=== PATIENT | female | born 1950 | race Caucasian/White ===

== ENCOUNTER → 2019-10-27 10:16 | Outpatient (CLI) | payer OTHER, MEDICARE, SELFPAY ==
--- NOTE | ~2019-10-27 | MR_ITS ---
EXAMINATION: MR knee RT wo con DATE: 10/27/2019 11:16 INDICATION: Tear of medial meniscus of right knee. Right knee pain. TECHNIQUE: Magnetic resonance imaging (MRI) of the right knee was performed without intravenous contr ast. Sequences included axial PD-weighted FS FSE, coronal PD-weighted FSE and PD-weighted FS FSE, sag ittal PD-weighted FSE, and sagittal T2-weighted FS FSE. COMPARISON: None. FINDINGS: Medial compartment: There is a vertical tear of posterior root of medial meniscus. There is deep partial thickness cartil age loss of tibial condyle involving the central articular surface with moderate subchondral edema-li ke marrow signal intensity. There is deep partial thickness cartilage loss of femoral condyle involvi ng the central, medial, and posterior articular surface. Osteophytes are noted. Lateral compartment: Lateral meniscus is normal. There is deep partial thickness cartilage loss of tibial condyle involvin g the central articular surface. There is shallow partial-thickness cartilage loss of femoral condyle involving the central articular surface. Patellofemoral compartment: There is deep partial thickness cartilage loss of patellar medial facet, median ridge, and lateral fa cet with moderate subchondral edema-like marrow signal intensity. There is shallow partial-thickness cartilage loss of trochlea. Marginal osteophytes are noted. Ligaments and tendons: Anterior and posterior cruciate ligaments are normal. There are changes of prior sprains of medial co llateral ligament and fibular collateral ligament characterized by thickening and increased signal in tensity proximally. There is mild patellar tendinopathy. Fluid: There is a small knee joint effusion. There is a small Marinelli's cyst. There is mild prepatellar and gallagher perficial infrapatellar bursitis. IMPRESSION: 1. Moderate tricompartmental chondrosis. 2. Tear of medial meniscus. 3. Small knee joint effusion. 4. Small Marinelli's cyst. Reviewed, dictated and finalized at [facility].
== END ==
DX: S83.241A Other tear of medial meniscus, current injury, right knee, initial encounter (principal); X58.XXXA Exposure to other specified factors, initial encounter; M25.461 Effusion, right knee; M71.21 Synovial cyst of popliteal space [Baker], right knee
CPT/HCPCS: 73721

== ENCOUNTER 2025-01-27 08:54 | Outpatient (CLI) | payer OTHER, MEDICARE, SELFPAY ==
--- NOTE | ~2025-01-27 | MR_ITS ---
MRI of the right knee Clinical history: Pain Technique: Coronal proton density and proton density-weighted images, sagittal proton-density and T2 fat-sat images, and axial proton-density fat-saturated images were acquired. Findings: There is severe mucoid degenerative signal of the ACL with intrasubstance ganglion cyst. No definite tear seen. Posterior cruciate ligament is intact. Medial collateral ligament and the latera l collateral ligament complex are intact. Popliteus tendon is intact. There is radial tear at the posterior root of the medial meniscus. There is severe intrasubstance deg enerative signal in the body segment of the medial meniscus. Probable horizontal tear of the anterior horn of the lateral meniscus with probable developing septated/complex 8mm anterior para meniscal cy st adjacent to the anterior horn of the lateral meniscus. There is extensive moderate to high-grade chondromalacia of the patella. There is extensive moderate to high-grade chondral malacia the femoral trochlea. There is extensive high-grade chondral malacia o n both sides of the medial compartment with subchondral cystic change at the medial tibial plateau ne ar the joint line. There is patchy moderate chondromalacia of the lateral compartment. Small to moder ate tricompartmental osteophytes are present. Extensor mechanism is intact. No significant joint effusion. Small Marinelli cyst present. Impression: Radial tear of the posterior root of the medial meniscus with severe intrasubstance degenerative sign al in the body segment. Horizontal tear of the anterior horn lateral meniscus with developing 8mm complex para-meniscal cyst. Moderate to advanced tricompartmental osteoarthritis, as detailed above. 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 Reviewed, dictated and finalized at [facility]. Impression: Radial tear of the posterior root of the medial meniscus with severe intrasubst ance degenerative signal in the body segment. Horizontal tear of the anterior horn lateral meniscus with developing 8mm compl ex para-meniscal cyst. Moderate to advanced tricompartmental osteoarthritis, as detailed above. 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 Small Marinelli's cyst.
== END 2025-01-27 08:55 | disposition home or self-care (01) ==
LOC: MICIMG 08:56
DX: S83.241A Other tear of medial meniscus, current injury, right knee, initial encounter (principal); S83.281A Other tear of lateral meniscus, current injury, right knee, initial encounter; X58.XXXA Exposure to other specified factors, initial encounter; M17.11 Unilateral primary osteoarthritis, right knee; M67.461 Ganglion, right knee; M23.611 Other spontaneous disruption of anterior cruciate ligament of right knee; M71.21 Synovial cyst of popliteal space [Baker], right knee
CPT/HCPCS: 73721